=== PATIENT | female | born 1965 | race American Indian/Alaskan Native ===

== ENCOUNTER 2021-09-13 00:42 | Emergency (ER) | payer OTHER ==
[2021-09-13 01:04] VITALS: BP 146/90
[2021-09-13] MEDS ORDERED: BENZONATATE 100 MG CAP PO ONE ×2 (01:14→02:18)
[2021-09-13] MEDS ORDERED: AMOXICILLIN/K CLAV 875/125MG TAB PO ONE ×2 (01:14→02:18)
[2021-09-13] MEDS ORDERED: predniSONE 20 MG TAB PO ONE ×2 (01:14→02:18)
[2021-09-13] MEDS ORDERED: diphenhydrAMINE 25 MG CAP PO ONE ×2 (01:14→02:19)
[2021-09-13] MEDS ORDERED: IBUPROFEN 600 MG TAB PO ONE ×2 (01:15→02:18)
--- NOTE | 2021-09-13 01:41 | Emergency Department Report ---
- General Chief Complaint: Upper Respiratory Infection Stated Complaint: COUGH Source: patient Mode of arrival: Ambulatory Limitations: No Limitations - History of Present Illness Initial Comments: Patient is a 55-year-old -[place] female with no past medical history presents to the ED with complaint of acute onset persistent nasal and sinus congestion, frontal sinus pressure and headache, bilateral retro-orbital pressure and pain, persistent dry cough for the last 1 week, worse in the last 2 days. Patient states that she has not been able to sleep because of worsening symptoms especially cough at night. Patient states that she has been taking [id number] medications with no relief. Patient denies dizziness, syncope, fever and chills, sore throat, chest pain, shortness of breath, abdominal pain, nausea, vomiting, diarrhea, dysuria, urinary frequency and urgency, body aches and pains or low back pain and neck pain. MD Complaint: cough, rhinorrhea, nasal congestion, sinus pain, other (Bilateral retro-orbital pain and headache with pressure) -: Sudden, week(s) (1) Severity: severe Severity scale (0 -10): 8 Quality: sharp, aching Consistency: constant Improves With: nothing Worsens With: nothing Context: sick contacts Associated Symptoms: denies other symptoms, headache, rhinorrhea, nasal congestion, cough. denies: fever, chills, myalgias, diaphoresis, sore throat, stiff neck, chest pain, shortness of breath, abdominal pain, nausea, vomiting, diarrhea, dysuria, rash, confusion, right sweats, weight loss, epistaxis, tin rseness, ear pain, other Treatments Prior to Arrival: "cold medicine" - Related Data Previous Rx's Medication Instructions Recorded Last Taken Type Azithromycin [Zithromax Z-BERRY] 250 mg PO DAILY #6 tablet 09/13/21 Unknown Rx Benzonatate [Tessalon Perles] 100 mg PO Q8HR #30 capsule 09/13/21 Unknown Rx Cetirizine HCl [Zyrtec 10mg tab] 10 mg PO DAILY #30 tablet 09/13/21 Unknown Rx Ibuprofen [Motrin] 800 mg PO Q8HR PRN #30 tablet 09/13/21 Unknown Rx methylPREDNISolone [Medrol 4MG 4 mg PO DAILY #21 tab.ds.pk 09/13/21 Unknown Rx DOSEPAK (21 tabs)] ED Review of Systems ROS: Stated complaint: COUGH Other details as noted in HPI Constitutional: denies: chills, fever Eyes: denies: eye pain, eye discharge, vision change ENT: congestion, other (Nasal and sinus pressure and congestion). denies: ear pain, throat pain Respiratory: cough. denies: shortness of breath, wheezing Cardiovascular: denies: chest pain, palpitations Endocrine: no symptoms reported Gastrointestinal: denies: abdominal pain, nausea, vomiting, diarrhea Genitourinary: denies: urgency, dysuria, discharge Musculoskeletal: denies: back pain, joint swelling, arthralgia Skin: denies: rash, lesions Neurological: headache (Bilateral retro-orbital headache and pressure). denies: weakness, paresthesias Psychiatric: denies: anxiety, depression Hematological/Lymphatic: denies: easy bleeding, easy bruising ED Past Medical Hx - Past Medical History Previous Medical History?: No - Surgical History Past Surgical History?: Yes Additional Surgical History: HYSTERECTOMY - Social History Smoking Status: Never Smoker Substance Use Type: None - Medications Home Medications: Home Medications Medication Instructions Recorded Confirmed Last Taken Type Azithromycin [Zithromax Z-BERRY] 250 mg PO DAILY #6 tablet 09/13/21 Unknown Rx Benzonatate [Tessalon Perles] 100 mg PO Q8HR #30 capsule 09/13/21 Unknown Rx Cetirizine HCl [Zyrtec 10mg tab] 10 mg PO DAILY #30 tablet 09/13/21 Unknown Rx Ibuprofen [Motrin] 800 mg PO Q8HR PRN #30 tablet 09/13/21 Unknown Rx methylPREDNISolone [Medrol 4MG 4 mg PO DAILY #21 tab.ds.pk 09/13/21 Unknown Rx DOSEPAK (21 tabs)] ED Physical Exam - General Limitations: No Limitations General appearance: alert, in no apparent distress - Head Head exam: Present: atraumatic, normocephalic, normal inspection - Eye Eye exam: Present: normal appearance, PERRL, EOMI - ENT ENT exam: Present: normal orophraynx, mucous membranes moist, TM's normal bilaterally, normal external ear exam, other (Palpable severe frontal sinus tenderness; grossly congested nasal passages) - Neck Neck exam: Present: normal inspection, full ROM. Absent: tenderness - Respiratory Respiratory exam: Present: normal lung sounds bilaterally. Absent: respiratory distress, wheezes, rales, rhonchi, chest wall tenderness, accessory muscle use, decreased breath sounds - Cardiovascular Cardiovascular Exam: Present: regular rate, normal rhythm, normal heart sounds. Absent: systolic murmur, diastolic murmur, rubs, gallop - GI/Abdominal GI/Abdominal exam: Present: soft, normal bowel sounds. Absent: tenderness, guarding, hypoactive bowel sounds, organomegaly - Extremities Exam Extremities exam: Present: normal inspection, full ROM, normal capillary refill - Back Exam Back exam: Present: normal inspection, full ROM. Absent: tenderness, CVA tenderness (R), CVA tenderness (L), muscle spasm, paraspinal tenderness - Neurological Exam Neurological exam: Present: alert, oriented X3, CN II-XII intact, normal gait, reflexes normal - Psychiatric Psychiatric exam: Present: normal affect, normal mood - Skin Skin exam: Present: warm, dry, intact, normal color. Absent: rash ED Course Vital Signs 09/13/21 00:58 Temperature 98.2 F Pulse Rate 77 Respiratory 18 Rate Blood Pressure 146/90 O2 Sat by Pulse 99 Oximetry ED Medical Decision Making - Medical Decision Making This is a 55-year-old -[place] female with no past medical history presents to the ED with complaint of acute onset persistent nasal and sinus congestion, frontal sinus pressure and headache, bilateral retro-orbital pressure and pain, persistent dry cough for the last 1 week, worse in the last 2 days. Patient states that she has not been able to sleep because of worsening symptoms especially cough at night. Patient states that she has been taking [id number]-[id number] medications with no relief. In the ED, patient is alert and oriented x3 and is not in any distress. Patient was treated in the ED for pain and was given initial medications. On reevaluation, patient felt better, was discharged home on medications and advised to follow-up with her primary care physician in 7 to 10 days for reevaluation or return to the ED immediately if her symptoms get worse. - Differential Diagnosis Bronchitis; URI; sinusitis; rhinitis; Critical care attestation.: If time is entered above; I have spent that time in minutes in the direct care of this critically ill patient, excluding procedure time. ED Disposition Clinical Impression: Acute upper respiratory infection, Acute allergic rhinitis Acute bronchitis Qualifiers: Bronchitis organism: other organism Qualified Code(s): J20.8 - Acute bronchitis due to other specified organisms Acute frontal sinusitis Qualifiers: Recurrence: non-recurrent Qualified Code(s): J01.10 - Acute frontal sinusitis, unspecified Disposition: 01 HOME / SELF CARE / HOMELESS Is pt being admited?: No Does the pt Need Aspirin: No Condition: Stable Instructions: Acute Bronchitis (ED), Sinusitis, Adult, [id number], Upper Respiratory Infection, Adult, Hfxz-[id number], Cough, Adult, [id number], Acute Bronchitis, Adult, [id number]-[id number], Allergic Rhinitis, Adult, [id number]-[id number] Additional Instructions: Your symptoms are likely due to acute allergic rhinitis versus sinusitis versus bronchitis versus upper respiratory infection. Therefore take medications with food, drink plenty fluids, follow-up with your primary care physician in 7 to 10 days for reevaluation or return to the ED immediately if symptoms get worse. Prescriptions: methylPREDNISolone [Medrol 4MG DOSEPAK (21 tabs)] 4 mg PO DAILY #21 tab.ds.pk Ibuprofen [Motrin] 800 mg PO Q8HR PRN #30 tablet PRN Reason: Severe pain Benzonatate [Tessalon Perles] 100 mg PO Q8HR #30 capsule Azithromycin [Zithromax Z-BERRY] 250 mg PO DAILY #6 tablet Cetirizine HCl [Zyrtec 10mg tab] 10 mg PO DAILY #30 tablet Referrals: [facility] [Provider Group] - 7-10 days Time of Disposition: 01:42 Print Language: SPANISH
== END 2021-09-13 03:13 | disposition home or self-care (01) ==
LOC: ED 00:42
DX: J06.9 Acute upper respiratory infection, unspecified (principal); J30.9 Allergic rhinitis, unspecified; J20.9 Acute bronchitis, unspecified; J01.10 Acute frontal sinusitis, unspecified; Z90.710 Acquired absence of both cervix and uterus
CPT/HCPCS: 99282; J7512